=== PATIENT | male | born 1995 | race Hispanic/Latino ===

== ENCOUNTER 2017-06-11 19:57 | Emergency (ER) | payer OTHER ==
[~2017-06-11] VITALS: Ht 175.3 cm; Wt 86.4 kg
[2017-06-11 23:50] VITALS: BP 142/75
--- NOTE | 2017-06-12 07:37 | REP ---
Right hand four views: There is a transverse fracture at the midshaft of the fifth digit metacarpal. There is angulation at the fracture site. There is no dislocation. Mineralization and joint spaces are otherwise unremarkable. Signed by Ritesh Kaur MD 06/12/2017 07:29 A
--- NOTE | 2017-06-12 07:40 | REP ---
Nasal bone series three views: There is no nasal bone fracture. No orbital rim fracture. No air-fluid levels in the paranasal sinuses and skull base and sella are unremarkable. Impression: No nasal bone fracture. Signed by Ritesh Kaur MD 06/12/2017 07:32 A
== END 2017-06-12 00:17 | disposition home or self-care (01) ==
LOC: M ED 19:57
DX: S62.326A Displaced fracture of shaft of fifth metacarpal bone, right hand, initial encounter for closed fracture (principal); W22.8XXA Striking against or struck by other objects, initial encounter; Y92.019 Unspecified place in single-family (private) house as the place of occurrence of the external cause; Y93.89 Activity, other specified; Y99.8 Other external cause status; F17.210 Nicotine dependence, cigarettes, uncomplicated